=== PATIENT | male | born 1950 | race African-American/Black ===

== ENCOUNTER 2016-08-11 11:11 | Inpatient (IN) | payer BC ==
--- NOTE | ~2016-08-11 | DS ---
Discharge Summary [facility] [address] [place]. [address] NAME: ANTHONY HERRMANN : [birth year] STATUS : DIS IN PAT#: [id number] AGE: 65 ADM/REG DATE : 08/11/16 MR#: [id number] REPORT SERV DATE: 08/23/16 DICTATED BY: BUCK JAUREGUI DATE: 08/22/16 REPORT STATUS : Draft TRANSCRIBED BY: YAMILE DATE: 08/22/16 Data Collection from hospitalization DISCHARGE DIAGNOSES: 1. Atrioventricular block complete and atrial fibrillation, status post AV node ablation and permanent pacemaker placement. 2. Hypertension. 3. Hyperlipidemia. 4. History of stroke. CONSULTATIONS: None. PROCEDURES: AV node ablation and permanent pacemaker placement 08/11/2016. DISCHARGE MEDICATIONS: Eliquis 5 mg twice a day, Lipitor 20 mg at bedtime, Duricef 500 mg every 12 hours, Lasix 40 mg twice a day, Cozaar 50 mg daily, Glucophage 1000 mg twice a day, multivitamins one tablet daily, Klor-Con 10 mEq daily. He was instructed not to continue diltiazem (Cardizem). CONDITION ON DISCHARGE: Stable. DISPOSITION: The patient was discharged home on a low-cholesterol, low-sodium, 1800-calorie cardiac/diabetic diet with activities as instructed. He would follow up with me 08/18/2016. HOSPITAL COURSE: This is a 65-year-old man who has chronic atrial fibrillation and who has fairly recently failed DC cardioversion while on sotalol. AV node ablation was considered, but he wanted to wait. He returned at this time feeling more tired and more short of breath and in general, felt like his health was more poor. He was at his primary care physician's office on the day prior to this admission and was found to be in atrial fibrillation, and he was tachycardic. It was felt that he would need to undergo AV node ablation as well as single lead permanent pacemaker implant. He was admitted to the hospital at this time for further evaluation and treatment. Upon admission, he was taken to the operating room where he underwent the above-mentioned procedure. He tolerated this well. There were no complications. He had been given Lasix during the night and had good urine output. He was still on face mask. He did have crackles in both lungs. He did have some edema. Diuresis continued. On the 6th, his T-max was 101. His lungs were clear. We encouraged him to increase his activity. Eliquis was continued. Over the next couple of days, he continued to do well. He remained afebrile. His abdomen was soft and nontender. He had no edema. Discharge planning was performed. He had been changed to IV antibiotics. On 08/15/2016, he felt good. He wanted to go home. He had no chest pain. He had no shortness of breath. He was in a ventricular paced rhythm. Did have some cellulitis of the lower extremities. Antibiotics were continued. Discharge instructions were given. Due to his improved and stable condition, he was discharged home with the above-stated instructions. Information collected by: Sharonda Valencia Discharge Summary [facility] [id number] [place]. [address] NAME: ANTHONY HERRMANN : [birth year] STATUS : DIS IN [facility]#: [id number] AGE: 65 ADM/REG DATE : 08/11/16 MR#: [id number] REPORT SERV DATE: 08/23/16 DICTATED BY: BUCK JAUREGUI DATE: 08/22/16 REPORT STATUS : Draft TRANSCRIBED BY: YAMILE DATE: 08/22/16 I submit the above information as my discharge summary. TIANA/YAMILE Buck Jauregui M.D. / [id number] CC: Mohit Vaughn M.D.
[~2016-08-11 11:11] MED LIST: ASAB PO; GLUCOPHAGE1000 MG PO; LIPITOR20 PO; LOP50 PO; MULTIPLE VIT PO; NORV10 PO; PLAVIX PO; VALTURN1 PO
[2016-08-11] MEDS ORDERED: CARDCD240 PO (11:46)
[2016-08-11] MEDS ORDERED: L40 PO (11:46)
[2016-08-11] MEDS ORDERED: ELIQUIS 5 MG TAB5 MG PO (11:46)
[2016-08-11] MEDS ORDERED: COZ50 PO (11:47)
[2016-08-11] MEDS ORDERED: DURICEF PO (11:47)
[2016-08-11 12:11] LABS: BASOPHILS 0.4 %; BASOPHILS ABSOLUTE 0.02 10/3/uL (0.0-0.16); EOSINOPHILS 3.1 %; EOSINOPHILS ABSOLUTE 0.15 10/3/uL (0.0-0.53); HEMATOCRIT 37.3 % (40.0-51.0); HEMOGLOBIN 12.6 g/dL (13.6-17.8); IMMATURE GRANULOCYTES 0.2 %; IMMATURE GRANULOCYTES ABSOLUTE 0.01 10/3/uL (0.0-0.11); LYMPHOCYTES 29.5 %; LYMPHOCYTES ABSOLUTE 1.41 10/3/uL (0.67-4.30); MEAN CORPUS HGB CONC 33.8 g/dL (32.0-36.0); MEAN CORPUSCULAR HEMOGLOB 29.9 pg (26.0-34.0); MEAN CORPUSCULAR VOLUME 88.4 fL (80-100); MEAN PLATELET VOLUME 10.6 fL (9.2-13.0); MONOCYTES 15.3 %; MONOCYTES ABSOLUTE 0.73 10/3/uL (0.21-1.20); NEUTROPHILS 51.5 %; NEUTROPHILS ABSOLUTE 2.46 10/3/uL (2.02-8.40); PLATELET COUNT 209 10/3/uL (150-400); RBC DISTRIBUTION WIDTH 14.5 % (12.0-16.0); RED CELL COUNT 4.22 10/6/uL (4.7-6.1); WHITE BLOOD CELLS 4.8 10/3/uL (4.5-10.5)
[2016-08-11 12:12] LABS: MANUAL DIFF NO %
[2016-08-11 12:25] LABS: BUN (BLOOD UREA NITROGEN) 19 MG/DL (6-23); CHLORIDE, SERUM 105 MMOL/L (96-112); CO2 (CARBON DIOXIDE) 28 MMOL/L (24-34); GFR AFRICAN AMERICAN 67 ML/MIN (>=60); GFR NON AFRICAN AMERICAN 58 ML/MIN (>=60); GLUCOSE, SERUM 121 MG/DL (60-99); SODIUM, SERUM 141 MMOL/L (135-148)
[2016-08-11 12:26] LABS: POTASSIUM, SERUM 4.8 MMOL/L (3.5-5.3)
[2016-08-12 13:06] LABS: BUN (BLOOD UREA NITROGEN) 19 MG/DL (6-23); CALCIUM, SERUM 8.5 MG/DL (8.5-10.4); CHLORIDE, SERUM 105 MMOL/L (96-112); CO2 (CARBON DIOXIDE) 28 MMOL/L (24-34); CREATININE 1.33 MG/DL (0.70-1.30); GFR AFRICAN AMERICAN 65 ML/MIN (>=60); GFR NON AFRICAN AMERICAN 56 ML/MIN (>=60); GLUCOSE, SERUM 132 MG/DL (60-99); SODIUM, SERUM 142 MMOL/L (135-148)
[2016-08-12 13:07] LABS: POTASSIUM, SERUM 3.8 MMOL/L (3.5-5.3)
[2016-08-13 04:39] LABS: BUN (BLOOD UREA NITROGEN) 19 MG/DL (6-23); CALCIUM, SERUM 8.2 MG/DL (8.5-10.4); CHLORIDE, SERUM 103 MMOL/L (96-112); CO2 (CARBON DIOXIDE) 30 MMOL/L (24-34); GFR AFRICAN AMERICAN 82 ML/MIN (>=60); GFR NON AFRICAN AMERICAN 71 ML/MIN (>=60); GLUCOSE, SERUM 111 MG/DL (60-99); POTASSIUM, SERUM 3.5 MMOL/L (3.5-5.3); SODIUM, SERUM 140 MMOL/L (135-148)
[2016-08-13 16:17] LABS: ASCORBIC ACID (UR NOT ORDER) NEG (NEG); BILIRUBIN, URINE NEGATIVE (NEG); KETONE, URINE 20 MG/DL (NEG); LEUKOCYTE ESTERASE(NOT OR NEG (NEG); WBC (NOT ORDERED) (RFLEX) < 1 (0-5)
[2016-08-14 06:11] LABS: BASOPHILS 0.1 %; BASOPHILS ABSOLUTE 0.01 10/3/uL (0.0-0.16); EOSINOPHILS 3.4 %; EOSINOPHILS ABSOLUTE 0.24 10/3/uL (0.0-0.53); HEMATOCRIT 38.1 % (40.0-51.0); HEMOGLOBIN 12.7 g/dL (13.6-17.8); IMMATURE GRANULOCYTES 0.1 %; IMMATURE GRANULOCYTES ABSOLUTE 0.01 10/3/uL (0.0-0.11); LYMPHOCYTES 18.8 %; LYMPHOCYTES ABSOLUTE 1.33 10/3/uL (0.67-4.30); MEAN CORPUS HGB CONC 33.3 g/dL (32.0-36.0); MEAN CORPUSCULAR HEMOGLOB 29.5 pg (26.0-34.0); MEAN CORPUSCULAR VOLUME 88.6 fL (80-100); MEAN PLATELET VOLUME 10.1 fL (9.2-13.0); MONOCYTES 14.2 %; MONOCYTES ABSOLUTE 1.01 10/3/uL (0.21-1.20); NEUTROPHILS 63.4 %; NEUTROPHILS ABSOLUTE 4.49 10/3/uL (2.02-8.40); PLATELET COUNT 184 10/3/uL (150-400); RBC DISTRIBUTION WIDTH 14.2 % (12.0-16.0)
[2016-08-14 06:12] LABS: MANUAL DIFF NO %; WHITE BLOOD CELLS 7.1 10/3/uL (4.5-10.5)
[2016-08-14 06:20] LABS: BUN (BLOOD UREA NITROGEN) 19 MG/DL (6-23); CALCIUM, SERUM 8.1 MG/DL (8.5-10.4); CHLORIDE, SERUM 104 MMOL/L (96-112); CO2 (CARBON DIOXIDE) 30 MMOL/L (24-34); CREATININE 1.03 MG/DL (0.70-1.30); GFR AFRICAN AMERICAN 89 ML/MIN (>=60); GFR NON AFRICAN AMERICAN 76 ML/MIN (>=60); GLUCOSE, SERUM 99 MG/DL (60-99); POTASSIUM, SERUM 3.6 MMOL/L (3.5-5.3); SODIUM, SERUM 140 MMOL/L (135-148)
[2016-08-15 04:48] LABS: BASOPHILS 0.2 %; BASOPHILS ABSOLUTE 0.01 10/3/uL (0.0-0.16); EOSINOPHILS 4.6 %; EOSINOPHILS ABSOLUTE 0.26 10/3/uL (0.0-0.53); HEMATOCRIT 34.7 % (40.0-51.0); HEMOGLOBIN 11.5 g/dL (13.6-17.8); LYMPHOCYTES 34.2 %; LYMPHOCYTES ABSOLUTE 1.92 10/3/uL (0.67-4.30); MEAN CORPUS HGB CONC 33.1 g/dL (32.0-36.0); MEAN CORPUSCULAR HEMOGLOB 29.2 pg (26.0-34.0); MEAN CORPUSCULAR VOLUME 88.1 fL (80-100); MEAN PLATELET VOLUME 10.6 fL (9.2-13.0); MONOCYTES 13.5 %; MONOCYTES ABSOLUTE 0.76 10/3/uL (0.21-1.20); NEUTROPHILS 47.5 %; NEUTROPHILS ABSOLUTE 2.67 10/3/uL (2.02-8.40); PLATELET COUNT 197 10/3/uL (150-400); RBC DISTRIBUTION WIDTH 14.2 % (12.0-16.0); RED CELL COUNT 3.94 10/6/uL (4.7-6.1); WHITE BLOOD CELLS 5.6 10/3/uL (4.5-10.5)
[2016-08-15 04:50] LABS: MANUAL DIFF NO %
[2016-08-15 05:01] LABS: CALCIUM, SERUM 8.1 MG/DL (8.5-10.4); CHLORIDE, SERUM 106 MMOL/L (96-112); CO2 (CARBON DIOXIDE) 29 MMOL/L (24-34); CREATININE 0.97 MG/DL (0.70-1.30); GFR AFRICAN AMERICAN 95 ML/MIN (>=60); GFR NON AFRICAN AMERICAN 82 ML/MIN (>=60); GLUCOSE, SERUM 105 MG/DL (60-99); POTASSIUM, SERUM 3.4 MMOL/L (3.5-5.3); SODIUM, SERUM 141 MMOL/L (135-148)
[2016-08-15 05:02] LABS: BUN (BLOOD UREA NITROGEN) 24 MG/DL (6-23)
[2016-08-15] MEDS ORDERED: KLOR-CON 1010 MEQ PO (14:32)
[2016-09-22] MEDS ORDERED: LOVENOX SC (14:13)
[2016-10-31] MEDS ORDERED: LIPITOR20 PO (15:48)
[2016-10-31] MEDS ORDERED: L40 PO (15:49)
[2016-10-31] MEDS ORDERED: TEMOVATE CREAM30 GM TOP (15:49)
[2016-10-31] MEDS ORDERED: GLUCOPHAGE1000 MG PO (15:50)
[2016-10-31] MEDS ORDERED: COZ50 PO (15:50)
[2016-10-31] MEDS ORDERED: MULTIVITAMI1 PO (15:50)
[2016-10-31] MEDS ORDERED: ELIQUIS 5 MG TAB5 MG PO (15:50)
[2016-10-31] MEDS ORDERED: SALINE NOSE SPRAY NAS (15:51)
[2016-11-07] MEDS ORDERED: KDUR20 PO (18:30)
[2016-11-07] MEDS ORDERED: ASAB PO (18:30)
[2016-11-07] MEDS ORDERED: BUM1 PO (18:31)
[2016-11-07] MEDS ORDERED: COREG3 PO (18:31)
[2016-12-06] MEDS ORDERED: LOVENOX1C SC (08:58)
== END 2016-08-15 15:26 | disposition home or self-care (01) | DRG 242 ==
LOC: CORLMH 11:11 → SSU1 11:19 → 6NO 08-13 13:14
PROVIDERS: Internal Medicine Cardiovascular Disease
PROC: 0JH604Z Insertion of Pacemaker, Single Chamber into Chest Subcutaneous Tissue and Fascia, Open Approach (ICD-10-PCS; principal; 2016-08-11)
PROC: 02HK3JZ Insertion of Pacemaker Lead into Right Ventricle, Percutaneous Approach (ICD-10-PCS; 2016-08-11)
PROC: 02583ZZ Destruction of Conduction Mechanism, Percutaneous Approach (ICD-10-PCS; 2016-08-11)
PROC: 02K83ZZ Map Conduction Mechanism, Percutaneous Approach (ICD-10-PCS; 2016-08-11)
DX: I48.2 Chronic atrial fibrillation (principal); I50.21 Acute systolic (congestive) heart failure; E78.5 Hyperlipidemia, unspecified; I25.10 Atherosclerotic heart disease of native coronary artery without angina pectoris; E11.9 Type 2 diabetes mellitus without complications; L03.90 Cellulitis, unspecified; I44.2 Atrioventricular block, complete; Z86.73 Personal history of transient ischemic attack (TIA), and cerebral infarction without residual deficits; Z95.1 Presence of aortocoronary bypass graft; I11.0 Hypertensive heart disease with heart failure
CPT/HCPCS: 33207; 71010; 71020; 80048; 81001; 82962; 83735; 85025; 87040; 87070; 87086; 87205; 93005; 93650; 96374; 96375; 96376; A9270-GY; C1732; C1769; C1781; C1786; C1892; C1894; C1898; G0378; J0690; J1940; J2250; J2370; J3010

== ENCOUNTER 2016-09-27 06:51 | Day surgery (SDC) | payer BC ==
--- NOTE | ~2016-09-27 | EGD ---
EGD REPORT [facility] [address] [place] [address] NAME: ATNHONY SMALLS : 52 STATUS : REG [facility]#: [id number] AGE: 65 ADM/REG DATE : 09/27/16 MR#: [id number] REPORT SERV DATE: 09/27/16 DICTATED BY: ROBERTA GOMES DATE: 09/27/16 REPORT STATUS : Draft TRANSCRIBED BY: [employer] DATE: 09/27/16 [facility] Patient Name: Anthony Smalls Date of : 1950 Attending MD: ROBERTA GOMES MD Procedure Date No Time: 09/27/2016 Procedure: Colonoscopy Indications: High risk colon cancer surveillance: Personal history of colonic polyps Referring MD: Mohit INFANTE MD Medicines: as per anesthesia Complications: No immediate complications. Procedure: Pre-Anesthesia Assessment: - ASA Grade Assessment: III - A patient with severe systemic disease. After I obtained informed consent, the scope was passed under direct vision. Throughout the procedure, the patient's blood pressure, pulse, and oxygen saturations were monitored continuously. The PCF [id number] was introduced through the anus and advanced to the cecum, identified by appendiceal orifice and ileocecal valve. The colonoscopy was performed without difficulty. The patient tolerated the procedure. The quality of the bowel preparation was adequate to identify polyps. Findings: The perianal and digital rectal examinations were normal. A sessile polyp was found in the transverse colon. The polyp was 5 mm in size. The polyp was removed with a jumbo cold forceps. Resection and retrieval were complete. A few small and large-mouthed diverticula were found in the sigmoid colon and in the descending colon. Internal hemorrhoids were found during endoscopy and were moderate. Impression: - One 5 mm polyp in the transverse colon. Resected and retrieved. - Diverticulosis in the sigmoid colon and in the descending colon. - Internal hemorrhoids. Recommendation: - Await pathology results. - Repeat colonoscopy for surveillance based on pathology results. Procedure Code(s): --- Professional --- EGD REPORT [facility] [address] [place]. [address] NAME: ANTHONY SMALLS : 52 STATUS : REG [facility] PAT#: [id number] AGE: 65 ADM/REG DATE : 09/27/16 MR#: [id number] REPORT SERV DATE: 09/27/16 DICTATED BY: ROBERTA GOMES. DATE: 09/27/16 REPORT STATUS : Draft TRANSCRIBED BY: [employer] DATE: 09/27/16 [id number], Colonoscopy, flexible, proximal to splenic flexure; with biopsy, single or multiple Diagnosis Code(s): --- Professional --- D12.3, Benign neoplasm of transverse colon K64.8, Other hemorrhoids K57.30, Diverticulosis of large intestine without perforation or abscess without bleeding Z86.010, Personal history of colonic polyps CPT copyright 2013 [employer]. All rights reserved. The codes documented in this report are preliminary and upon information coder review may be revised to meet current compliance requirements. ROBERTA GOMES MD 09/27/2016 9:02 AM This report has been signed electronically. Number of Addenda: 0 Note Initiated On: 09/27/2016 8:24 AM Scope Withdrawal Time 0 hours 8 minutes 30 seconds [address] [place] [address]
[~2016-09-27 06:51] MED LIST changes: +CARDCD240 PO; +COZ50 PO; +DURICEF PO; +ELIQUIS 5 MG TAB5 MG PO; +KLOR-CON 1010 MEQ PO; +L40 PO; +LOVENOX SC
[2016-10-31] MEDS ORDERED: LIPITOR20 PO (15:48)
[2016-10-31] MEDS ORDERED: L40 PO (15:49)
[2016-10-31] MEDS ORDERED: TEMOVATE CREAM30 GM TOP (15:49)
[2016-10-31] MEDS ORDERED: ELIQUIS 5 MG TAB5 MG PO (15:50)
[2016-10-31] MEDS ORDERED: MULTIVITAMI1 PO (15:50)
[2016-10-31] MEDS ORDERED: COZ50 PO (15:50)
[2016-10-31] MEDS ORDERED: GLUCOPHAGE1000 MG PO (15:50)
[2016-10-31] MEDS ORDERED: SALINE NOSE SPRAY NAS (15:51)
[2016-11-07] MEDS ORDERED: ASAB PO (18:30)
[2016-11-07] MEDS ORDERED: KDUR20 PO (18:30)
[2016-11-07] MEDS ORDERED: COREG3 PO (18:31)
[2016-11-07] MEDS ORDERED: BUM1 PO (18:31)
[2016-12-06] MEDS ORDERED: LOVENOX1C SC (08:58)
== END 2016-09-27 23:59 | disposition home or self-care (01) ==
LOC: DMU 06:51
PROVIDERS: Internal Medicine Gastroenterology
PROC: 0DBL8ZX Excision of Transverse Colon, Via Natural or Artificial Opening Endoscopic, Diagnostic (ICD-10-PCS; principal; 2016-09-27 07:30)
DX: Z12.11 Encounter for screening for malignant neoplasm of colon (principal); D12.3 Benign neoplasm of transverse colon; K64.8 Other hemorrhoids; K57.30 Diverticulosis of large intestine without perforation or abscess without bleeding; I25.10 Atherosclerotic heart disease of native coronary artery without angina pectoris; I48.91 Unspecified atrial fibrillation; E11.9 Type 2 diabetes mellitus without complications; E78.5 Hyperlipidemia, unspecified; I10 Essential (primary) hypertension; Z86.73 Personal history of transient ischemic attack (TIA), and cerebral infarction without residual deficits; Z79.899 Other long term (current) drug therapy; Z86.010 Personal history of colon polyps; Z98.890 Other specified postprocedural states; Z95.0 Presence of cardiac pacemaker; Z95.1 Presence of aortocoronary bypass graft
CPT/HCPCS: 82962; 88305